=== PATIENT | female | born 1995 | race Caucasian/White ===

== ENCOUNTER 2017-01-26 05:20 | Day surgery (SDC) | payer BC ==
[2017-01-25 11:14] VITALS: BMI 28.5
[~2017-01-26] VITALS: Ht 154.9 cm; Wt 91.4 kg
[2017-01-26] VITALS (8 sets, daily range): BP systolic 112–124; BP diastolic 57–74; PULSE 76–122; RESP 14–18; Ht 154.9 cm; Wt 91.4 kg
[2017-01-26] MEDS ORDERED: SOD CHLORIDE 0.9% 1,000 ML IV SCH (06:00)
[2017-01-26] MEDS ORDERED: CEFAZOLIN 2 GM/50 ML (PMX) 50 ML IVPB SCH (06:00)
[2017-01-26] MEDS ORDERED: ALBU2TAB5 PO (06:12)
[2017-01-26] MEDS ORDERED: CEFAZOLIN 1 GM INJ ONE (07:00)
[2017-01-26] MEDS ORDERED: SUCCINYLCHOLINE CHLORIDE 100 MG/5 ML SYG IV ONE (07:00)
[2017-01-26] MEDS ORDERED: BUPIVACAINE 0.25% (MPF) 30 ML INJ ONE (07:02)
[2017-01-26] MEDS ORDERED: PROPOFOL 20 ML ONE (07:35)
[2017-01-26] MEDS ORDERED: ROCURONIUM 50 MG INJ ONE (07:35)
[2017-01-26] MEDS ORDERED: MIDAZOLAM 1 MG/ML 2 ML INJ ONE (07:36)
[2017-01-26] MEDS ORDERED: ROPIVACAINE 0.2% 20 ML VIAL ONE (07:36)
[2017-01-26] MEDS ORDERED: FENTAnyl 50 MCG/ML VIAL ONE ×2 (07:36→08:04)
[2017-01-26] MEDS ORDERED: DEXAMETHASONE 4 MG/ML 1 ML INJ ONE (08:19)
[2017-01-26] MEDS ORDERED: KETOROLAC 30 MG INJ ONE (08:19)
[2017-01-26] MEDS ORDERED: EPHEDrine SULFATE 50 MG/5 ML SYG ONE (08:19)
[2017-01-26] MEDS ORDERED: ONDANSETRON 4 MG INJ ONE (08:19)
[2017-01-26] MEDS ORDERED: METOCLOPRAMIDE 10 MG INJ ONE (08:19)
[2017-01-26] MEDS ORDERED: SUGAMMADEX SODIUM 200 MG/2 ML VIAL IV ONE (08:20)
[2017-01-26] MEDS ORDERED: ACETAMINOPHEN 1000MG/100ML IV 100 ML ONE (08:24)
[2017-01-26] MEDS ORDERED: EPHEDrine SULFATE 50 MG/5 ML SYG IV PRN (08:30)
[2017-01-26] MEDS ORDERED: DIPHENHYDRAMINE 50 MG INJ IV PRN (08:30)
[2017-01-26] MEDS ORDERED: LABETALOL HCL 20MG INJ IV PRN (08:30)
[2017-01-26] MEDS ORDERED: FENTAnyl 50 MCG/ML VIAL IV PRN ×3 (08:30)
[2017-01-26] MEDS ORDERED: ONDANSETRON 4 MG INJ IV PRN (08:30)
[2017-01-26] MEDS ORDERED: MEPERIDINE 25 MG INJ IV PRN (08:30)
[2017-01-26] MEDS ORDERED: HYDROCODONE/APAP (5/325) TAB PO ONE (08:30)
[2017-01-26] MEDS ORDERED: METOCLOPRAMIDE 10 MG INJ IV PRN (08:30)
[2017-01-26] MEDS ORDERED: HYDROmorphONE (0.2 MG/ML) 10ML SYG IV PRN ×3 (08:30)
--- NOTE | 2017-01-26 08:31 | OPR ---
Date/Time of Note Date/Time of Note DATE: 01/26/17 TIME: 08:27 Operative Report Procedure Date: Jan 26, 2017 Preoperative Diagnosis symptomatic gallstones Postoperative Diagnosis same Operation Performed 1. laparoscopic cholecystectomy 2. therapeutic injection of subcutaneous marcaine cpt code 57240 Surgeon: Anirudh ROWE Anesthesia Type: general Estimated Blood Loss: 10 - 50 ml's Specimens gallbladder Grafts/Implants: none Complications: no Indications This is a 21-year-old female with subsided gallstones. She requires surgical excision of her gallbladder. Risks alternatives benefits of percent were discussed the patient. She expressed understanding and consents to the operation. Procedure Description Patient is taken to the OR and prepped and draped in usual sterile fashion. Surgical timeout was performed. IV antibiotics given. Infraumbilical incision is made transversely with a 15 blade. Dissection cautery was carried onto the fascia. The fascia was grasped with Redkey's and divided with curved Ruiz scissors. 0 Vicryl U stitches placed into the fascia. Balloon Schulz trocar is introduced. Pneumoperitoneum is established. Midepigastric 12 mm optical trochars placed under direct visualization. Right upper quadrant 5 mm and right upper flank 5 mm optical trocar was placed under direct visualization. Upon initial inspection there are some adhesions to the gallbladder the gallbladder was intrahepatic. Mobilization was first performed by grasping the gallbladder fundus and retracting the gallbladder in the lateral and out direction. Lateral dissection with hook cautery was initiated to allow mobilization. The cystic duct and cystic artery were isolated and dissected out carefully. The critical view was established. The cystic duct and cystic artery were thickened and thus were divided with a 35 mm echelon vascular stapler. The staple line was then reinforced with clips. The gallbladder was taken off the gallbladder bed. The gallbladder was retrieved using an Endo Catch bag. There is good hemostasis in the surgical site. Ports removed under direct visualization. 0 Vicryl U stitch was tied down. Skin was closed using skin jackelin. Therapeutic subcu times Marcaine was injected throughout the port sites. Dry dressings were applied. Anirudh ROWE Jan 26, 2017 08:31
== END 2017-01-26 10:40 | disposition home or self-care (01) ==
LOC: SDS 05:20
PROVIDERS: ATTEND Surgery
DX: K80.10 Calculus of gallbladder with chronic cholecystitis without obstruction (principal); J45.909 Unspecified asthma, uncomplicated; E66.01 Morbid (severe) obesity due to excess calories; Z68.38 Body mass index [BMI] 38.0-38.9, adult
CPT/HCPCS: 47562; 84703; 88304; J0131; J0690; J1885; J2175; J2250; J2405; J2765; J2795; J3010; Z7512; Z7610; J1100; J7999